=== PATIENT | female | born 1935 | race Caucasian/White ===

== ENCOUNTER 2018-06-16 13:38 | Emergency (ER) | payer OTHER ==
[~2018-06-16] VITALS: Ht 157.5 cm; Wt 51.8 kg
[~2018-06-16 13:38] MED LIST: ACID CONTROL150 MG PO; ANTIVERT25 MG PO; AZATHIOPRINE50 MG PO; Aspirin E.C. PO; BISOPROLOL FUMARATE/; BISOPROLOL-HCT1 EAC2 PO; CALCIUM 600 MG1 EAC1 PO; CALCIUM500 M4 PO; CEFTIN250 MG PO; CELLCEPT500 MG PO; CLOPIDOGREL75 MG PO; COZAAR100 MG PO; DRAMAMINE25 MG PO; DUREZOL 0.100 DROP/5 RIGHT EYE; LOSARTAN POTAS100 MG PO; Levaquin PO; MECLIZINE HCL25 MG PO; OMEGA 3-6-91200 MG PO; PERSERVISION PO; PRAVASTATIN SOD40 MG PO; PRED FORTE100 DROP/5 RIGHT EYE; PREDNISONE10 MG PO; PREDNISONE20 MG PO; PRESERVISION T1 EACH PO; Theragran PO; VITAMIN D31000 UNIT PO; VITAMIN E400 UNIT PO; WOMEN'S ONE DA1 EACH PO; Xanax PO; bisoprolol/HCTZ; iron; predniSONE PO
[2018-06-16 14:29] LABS: HEMATOCRIT 35.1 % (36.0-46.0); HEMOGLOBIN 12.9 G/DL (11.9-15.5); MCH 37.2 PG (29.0-34.0); MCHC 36.8 G/DL (30.0-36.0); MCV 101.2 FL (83-99); PLATELET COUNT 155 K/uL (156-360); RBC DIS.WIDTH-CV 13.2 % (11.8-14.6); RBC DIS.WIDTH-SD 48.6 % (39-53); RED BLOOD COUNT 3.47 M/uL (3.80-5.20); WHITE BLOOD COUNT 5.7 K/uL (4.1-10.2)
[2018-06-16 14:37] LABS: CHLORIDE 94 mEq/L (99-109); POTASSIUM 3.9 mEq/L (3.7-5.4); SODIUM 131 mEq/L (136-147)
[2018-06-16 14:38] LABS: GLUCOSE 95 mg/dL (70-99)
[2018-06-16 14:42] LABS: CREATININE 0.8 mg/dL (0.6-1.3); GFR ESTIMATE (CALCULATED) > 59 mL/min/
[2018-06-16 14:43] LABS: UREA NITROGEN (BUN) 10 mg/dL (9-23)
[2018-06-16 14:50] LABS: TROP-I INTERPRETATION NEGATIVE; TROPONIN-I < 0.01 ng/mL (0.0-0.30)
[2018-06-16 17:03] VITALS: BP 135/62
== END 2018-06-16 17:09 | disposition home or self-care (01) ==
LOC: EME 13:38
PROVIDERS: Emergency Medicine
DX: E86.0 Dehydration (principal); R42 Dizziness and giddiness; R06.02 Shortness of breath; Z86.73 Personal history of transient ischemic attack (TIA), and cerebral infarction without residual deficits
CPT/HCPCS: 71046; 80048; 84484; 85027; 93005; 99281; 99285; J7030